=== PATIENT | female | born 1970 | race African-American/Black ===

== ENCOUNTER 2018-12-21 23:16 | Emergency (ER) | payer MEDICAID ==
[~2018-12-21] VITALS: Ht 165.1 cm; Wt 63.0 kg
[2018-12-22 00:04] LABS: BASOPHILS % 0.8 % (0.0-2.0); EOSINOPHILS % 0.8 % (0.0-5.0); HEMATOCRIT. 35.7 % (36.0-48.0); HEMOGLOBIN. 11.8 g/dL (12.0-16.0); LYMPHOCYTES % 25.7 % (20.0-50.0); MEAN CORPUSCULAR HEMOGLOBIN 30.2 pg (28.0-32.0); MEAN CORPUSCULAR VOLUME 91.1 fL (81.0-99.0); MEAN PLATELET VOLUME 7.7 fl (7.4-10.4); MONOCYTES % 5.2 % (2.0-8.0); NEUTROPHILS % 67.5 % (40.0-76.0); PLATELET 482 x1000/uL (130-400); RED BLOOD CELL COUNT 3.92 mill/uL (4.2-5.4); RED CELL DISTRIBUTION WIDTH 13.8 % (11.6-14.6)
[2018-12-22 00:16] LABS: CHLORIDE 106 mEq/L (98-107)
[2018-12-22] MEDS: VISCOUS LIDOCAINE 2% 15 ML UDC PO ONE (00:45)
[2018-12-22] MEDS: MAGNESIUM/ALUMINUM HYDROXIDE/SIMETHICONE 30ML UDC PO ONE (00:45)
[2018-12-22 02:19] VITALS: BP 103/61
[2018-12-22] MEDS: FAMOTIDINE 20MG TABLET PO ONE (02:19)
== END 2018-12-22 02:31 | disposition home or self-care (01) ==
LOC: ER 23:16
DX: R07.89 Other chest pain (principal); K21.9 Gastro-esophageal reflux disease without esophagitis; R06.02 Shortness of breath; R11.0 Nausea; F17.200 Nicotine dependence, unspecified, uncomplicated
CPT/HCPCS: 36415; 71045; 83880; 84484; 93005; 99284

== ENCOUNTER 2024-11-22 20:11 | Emergency (ER) | payer MEDICAID, OTHER ==
[~2024-11-22] VITALS: Ht 162.6 cm; Wt 79.0 kg
[2024-11-22 20:19] VITALS: O2SAT 97
[2024-11-22 20:20] VITALS: BP 122/69; PULSE 84; RESP 18; TEMP 36.9; O2SAT 100
[2024-11-22] MEDS ORDERED: DIPH25CA83 MT (20:43)
[2024-11-22] MEDS ORDERED: P50 MT (20:43)
== END 2024-11-22 20:55 | disposition home or self-care (01) ==
LOC: ER 20:11
DX: L29.9 Pruritus, unspecified (principal); Z88.8 Allergy status to other drugs, medicaments and biological substances
CPT/HCPCS: 99283